=== PATIENT | male | born 1955 | race African-American/Black ===

== ENCOUNTER 2024-11-30 08:52 | Day surgery (SDC) | payer MEDICARE, SELFPAY ==
[2024-11-22 12:04] VITALS: BMI 38.2
--- NOTE | 2024-11-30 09:37 | EXP.HP ---
History of Present Illness *Admission Date: 11/30/24 *Reason for visit:: Personal history of colon polyps *History of present illness: Mr. Perdomo is a 69-year-old gentleman who is here for screening/surveillance colonoscopy. He does have a personal history of colon polyps and his last colonoscopy was 5 years ago. The examination is deemed medically necessary for surveillance colonoscopy. The patient has been seen, interviewed and examined prior to the procedure by both myself and the anesthesia provider. [facility] Disclaimer: The information contained in this section may have been updated after the patient was seen, as this information can be updated by other users. Medical History (Updated 11/30/24 @ 10:24 by Kurt Crum II, MD) Sleep apnea Hyperthyroidism Family History (Updated 11/30/24 @ 09:53 by Karen Ferreira RN) Other No significant family history Social History (Updated 11/30/24 @ 10:17 by Berny Pennington CRNA) Smoking Status: Former smoker alcohol intake: never substance use type: denies use current occupational status: retired Travel in the last 8 weeks?: None caffeine: Yes Have you lived/traveled outside [place] in past 30 days?: No Contact w/someone who lives/traveled outside [place] past 30 days?: No Exposure to someone with infectious disease in past 14 days?: No Do you have a fever (greater than 100.4 F or 38 C)?: No Have you tested positive for COVID-19?: No Exposed to someone with COVID-19 in past 14 days?: No Do you have a sore throat?: No Do you have a cough?: No Do you have any weakness?: No Are you experiencing any nausea/vomitting?: No Do you have any diarrhea?: No Are you experiencing any unusual bleeding?: No Do you have any muscle aches/pain?: No Do you have any abdominal pain?: No Are you experiencing loss of taste or smell?: No Review of Systems Review of Systems Review of systems (narrative): Negative *Cardiovascular Comments: Negative *Gastrointestinal Comments: Negative *Genitourinary Comments: Negative *Musculoskeletal Comments: Negative *Neurologic Comments: Negative Meds Home Medications and Allergies Home Medications ?Medication ?Instructions ?Recorded ?Confirmed ?Type sodium,potassium,mag sulfates 17.5 See Rx Instructions PO .COMPLEX 07/24/25 Rx gram-3.13 gram-1.6 gram oral soln #354 mL (Suprep Bowel Prep Kit) celecoxib 200 mg capsule (Celebrex) 200 mg PO DAILY 11/22/24 11/30/24 History diphenhydramine HCl 25 mg capsule 25 mg PO HS 11/22/24 11/30/24 History (Benadryl) esomeprazole magnesium 40 mg 40 mg PO DAILY 11/22/24 11/30/24 History capsule,delayed release (Nexium) fenofibrate 120 mg tablet 134 mg PO DAILY 11/22/24 11/30/24 History finasteride 5 mg tablet 5 mg PO DAILY 11/22/24 11/30/24 History gabapentin 100 mg capsule 100 mg PO DAILY 11/22/24 11/30/24 History levothyroxine 75 mcg capsule 75 mcg PO DAILY 11/22/24 11/30/24 History losartan 25 mg tablet 25 mg PO DAILY 11/22/24 11/30/24 History multivitamin 1 tab PO DAILY 11/22/24 11/30/24 History tamsulosin 0.4 mg capsule 0 mg PO HS 11/22/24 11/30/24 History New Prescriptions to Start Prescriptions: Allergies Allergy/AdvReac Type Severity Reaction Status Date / Time No Known Allergies Allergy Verified 11/30/24 09:48 Exam *Routine HEENT Exam Head: Present normocephalic Eye: Present EOMI and PERRL ENT: Present mucous membranes moist *Routine Neck Exam Neck: Present supple *Routine Respiratory Exam Respiratory: Present CTA bilaterally *Routine Cardiovascular Exam Cardiovascular: Present RRR *Routine Abdominal Exam Abdominal: Present soft and normoactive bowel sounds; Absent tenderness *Routine Rectal Exam Rectal:: deferred *Routine Genitalia Exam Genitalia:: deferred *Routine Extremities Exam Extremities: Absent cyanosis, clubbing or edema *Routine Skin Exam Skin: Present warm; Absent rash *Routine Neurological Exam Neurological: Present alert and oriented X3 Assessment and Plan *Assessment and plan (1) Screening for colon cancer: Status: Acute Category: Medical Code(s): Z12.11 - Encounter for screening for malignant neoplasm of colon (2) Personal history of colon polyps, unspecified: Status: Acute Category: Medical Code(s): Z86.0100 - Personal history of colon polyps, unspecified Plan A/P: 1. Personal history of colon polyps is the preprocedural diagnosis. The patient will be anesthetized/sedated using MAC sedation. The patient has been seen and examined. Cardiac and lung assessment prior to the examination is stable. Proceed with planned screening/surveillance colonoscopy.
[2024-11-30 09:48] VITALS: BP 163/86; PULSE 63; RESP 18; TEMP 36.1; O2SAT 99
[2024-11-30] MEDS: LACTATED RINGERS 1000ML 1,000 ML 50 ML IV (10:02)
--- NOTE | 2024-11-30 10:17 | EXP.ANES.CKL ---
[facility] Disclaimer: The information contained in this section may have been updated after the patient was seen, as this information can be updated by other users. Medical History Sleep apnea Hyperthyroidism Family History (Updated 11/30/24 @ 09:53 by Karen Ferreira RN) Other No significant family history Social History (Updated 11/30/24 @ 09:53 by Karen Ferreira RN) Smoking Status: Former smoker alcohol intake: never substance use type: denies use current occupational status: retired Travel in the last 8 weeks?: None caffeine: Yes [facility] Anesthesia Checklist Patient Identification Patient Identification: Arm Band Structural Data Admitted From: Home Planned Operative Procedure/s: Colonoscopy Consent for Planned Operative Procedure(s) Verified: Yes Verified Documents: Surgical Consent and History and Physical NPO Status Verified Time NPO: 06:45 Additional verifications Anesthesia Reactions: No Airway Assessment Mallampati Score:: Class II C-Spine Mobility Assessed: Yes TMJ Mobility Assessed: Yes Dentition: Dentures-good fit Neurological Assessment Level of Consciousness: Awake, Alert and Appropriate Anesthesia Plan Anesthesia Risk discussed: Yes Anesthesia Plan: Verified ASA Class: II Anesthesia Type: MAC
--- NOTE | 2024-11-30 10:24 | HMH.PROCNOTE ---
[facility] Procedure Note Date: 11/30/24 Time: 10:36 Procedure Note:: Colonoscopy Procedure Report: Colonoscopy Endoscopist: Kurt Crum II, MD Referring physician: Venkata Goemz MD, [facility]?[place], [address] [place] [address] [place] [id number] Date of Procedure: November 30, 2024 Equipment: Olympus [id number] adult colonoscope Sedation: MAC sedation Indication: Mr. Perdomo is a 69-year-old gentleman who is here for follow-up screening/surveillance colonoscopy secondary to a personal history of colon polyps. His last colonoscopy was 5 years ago. He reports no abdominal pain, weight loss, change in his bowel habits or rectal bleeding. He reports no family history of colon cancer. Procedure: Prior to the procedure, a history and physical exam was performed, and patient's medications and allergies were reviewed. The risks, benefits and alternatives of the sedation and procedure were discussed with the patient. All questions were answered and informed consent was obtained. The patient was brought to the procedure room. Patient identification and proposed procedure were verified by the physician and the nurse. The patient was placed in a left lateral decubitus position and the scope was passed under direct vision. Throughout the procedure, the patient's blood pressure, pulse, and oxygen saturations were monitored continuously. The colonoscopy was accomplished without difficulty. The patient tolerated the procedure well. Findings: On digital rectal examination there was normal rectal tone. There were no external hemorrhoids. The prostate was 2+, smooth, soft, symmetric without nodules. The colonoscope was introduced through the anal canal to the rectum and advanced to the cecum. The ileocecal valve and appendiceal orifice were identified. The scope was advanced a short distance into the ileum which appeared grossly normal. The scope was then withdrawn into the colon. The cecum, ascending, transverse, descending, sigmoid and rectum were grossly normal. There were no mucosal abnormalities identified. Upon retroflexion within the rectum there were grade 1-2 internal hemorrhoids. The preparation was excellent throughout with [place] Preparation Score of 9. The cecal time was 12 minutes. Impression: 1. Normal colonoscopy with intubation of the terminal ileum Plan: We will discuss whether further surveillance is warranted.
[2024-11-30 10:40] VITALS: BP 104/67; PULSE 90; RESP 16; TEMP 36.4; O2SAT 99
[2024-11-30 10:50] VITALS: BP 116/76; PULSE 91; O2SAT 98
[2024-11-30 11:00] VITALS: BP 123/82; PULSE 77; O2SAT 98
[2024-11-30 11:10] VITALS: BP 127/83; PULSE 74; RESP 18; O2SAT 98
== END 2024-11-30 11:20 | disposition home or self-care (01) ==
PROVIDERS: PCP Internal Medicine Adolescent Medicine; Visit Provider Internal Medicine Gastroenterology
PROC: 0DJD8ZZ Inspection of Lower Intestinal Tract, Via Natural or Artificial Opening Endoscopic (ICD-10-PCS; CPT 45378; principal; 2024-11-30 10:30)
DX: Z12.11 Encounter for screening for malignant neoplasm of colon (principal); K64.0 First degree hemorrhoids; K64.1 Second degree hemorrhoids; Z86.0100 Personal history of colon polyps, unspecified; Z87.891 Personal history of nicotine dependence
CPT/HCPCS: 45378; J7120